=== PATIENT | male | born 1960 | race Caucasian/White ===

== ENCOUNTER 2018-02-13 07:38 | Day surgery (SDC) | payer BC, OTHER ==
[~2018-02-13 07:38] MED LIST: Bupivacaine 0.5% 30 ML SDV ONE; Lactated Ringers 1,000 ML IV SCH; Lidocaine 1% 20 ML MDV ONE; Sodium Chloride 0.9% 10 ML Syringe FLUSH PRN; Sodium Chloride 0.9% 2.5 ML Syringe FLUSH PRN; ceFAZolin 2 GM in Premix Bag 1 BAG IV ONE
[2018-02-13] MEDS ORDERED: Propofol 200 MG/20 ML SDV ONE (08:14)
[2018-02-13] MEDS ORDERED: Ketorolac 30 MG/ML SDV ONE (08:17)
[2018-02-13] MEDS ORDERED: Glycopyrrolate 0.2 MG/ML SDV ONE (08:17)
[2018-02-13] MEDS ORDERED: Ondansetron 4 MG/2 ML SDV ONE (08:17)
[2018-02-13] MEDS ORDERED: Lidocaine 2% 5 ML SDV ONE (08:17)
[2018-02-13] MEDS ORDERED: fentaNYL 100 MCG/2 ML SDV ONE (08:19)
[2018-02-13] MEDS ORDERED: Midazolam 1 MG/ML 2 ML SDV ONE (08:19)
--- NOTE | 2018-02-13 08:27 | PCM.PREANE ---
Preanesthetic Assessment - Anesthesia/Transfusion/Family Hx Anesthesia History: Prior Anesthesia Without Reaction Family History of Anesthesia Reaction: No Transfusion History: No Prior Transfusion(s) Intubation History: Unknown - Review of Systems General: No Symptoms Pulmonary: No Symptoms Cardiovascular: No Symptoms Gastrointestinal: No Symptoms Neurological: No Symptoms Other: Reports: None - Physical Assessment Height: 1.83 m Weight: 83.461 kg ASA Class: 2 Mental Status: Alert & Oriented x3 Airway Class: Mallampati = 2 Dentition: Reports: Normal Dentition Thyro-Mental Finger Breadths: 3 Mouth Opening Finger Breadths: 2 ROM/Head Extension: Full Lungs: Clear to Auscultation, Normal Respiratory Effort Cardiovascular: Regular Rate, Regular Rhythm - Allergies Allergies/Adverse Reactions: Allergies Allergy/AdvReac Type Severity Reaction Status Date / Time No Known Allergies Allergy Verified 02/10/18 12:32 - Blood Blood Available: No - Anesthesia Plan Pre-Op Medication Ordered: None - Acknowledgements Anesthesia Type Planned: General Anesthesia Pt an Appropriate Candidate for the Planned Anesthesia: Yes Pt/Guardian Understands and Agrees with Anesthesia Plan: Yes PreAnesthesia Questionnaire HEENT History: Reports: Allergic Rhinitis, Other (See Below) Other HEENT History: glasses for driving Cardiovascular History: Reports: None Respiratory History: Reports: None Gastrointestinal History: Reports: Colon Polyp, GERD Genitourinary History: Reports: None Musculoskeletal History: Reports: Fracture, Other (See Below) (chronic fatigue) Other Musculoskeletal History: hx fx arm and finger Neurological History: Reports: Concussion Psychiatric History: Reports: None Endocrine/Metabolic History: Reports: None Hematologic History: Reports: None Immunologic History: Reports: None Oncologic (Cancer) History: Reports: None Dermatologic History: Reports: Psoriasis - Past Surgical History Head Surgeries/Procedures: Reports: None HEENT Surgical History: Reports: Tonsillectomy GI Surgical History: Reports: Colonoscopy Musculoskeletal Surgical History: Reports: ORIF Other Musculoskeletal Surgeries/Procedures:: ORIF fx finger - SUBSTANCE USE Smoking Status *Q: Former Smoker (quit 21 years ago) Tobacco Use Within Last Twelve Months: No Recreational Drug Use History: No - HOME MEDS Home Medications: Home Meds Aspirin [Adult Low Dose Aspirin EC] 81 mg PO DAILY 02/04/18 [History] Omeprazole Magnesium [Prilosec Otc] 20 mg PO DAILY PRN 02/04/18 [History] - CURRENT (IN HOUSE) MEDS Current Meds: Current Medications Lactated Ringer's (Ringers, Lactated) 1,000 mls @ 125 mls/hr IV ASDIRECTED MORELIA Sodium Chloride (Saline Flush) 10 ml FLUSH ASDIRECTED PRN PRN Reason: Keep Vein Open Sodium Chloride (Saline Flush) 2.5 ml FLUSH ASDIRECTED PRN PRN Reason: Keep Vein Open Discontinued Medications Bupivacaine HCl (Marcaine 0.5%) Confirm Administered Dose 30 ml .ROUTE .STK-MED ONE Stop: 02/13/18 07:38 Fentanyl (Sublimaze) Confirm Administered Dose 100 mcg .ROUTE .STK-MED ONE Stop: 02/13/18 08:20 Glycopyrrolate (Robinul) Confirm Administered Dose 0.2 mg .ROUTE .STK-MED ONE Stop: 02/13/18 08:18 Cefazolin Sodium/Dextrose 2 gm (/ Premix) 50 mls @ 100 mls/hr IV ONETIME ONE Stop: 02/12/18 11:18 Ketorolac Tromethamine (Toradol) Confirm Administered Dose 30 mg .ROUTE .STK- MED ONE Stop: 02/13/18 08:18 Lidocaine (Xylocaine-Mpf 2%) Confirm Administered Dose 5 ml .ROUTE .STK-MED ONE Stop: 02/13/18 08:18 Lidocaine HCl (Xylocaine 1%) Confirm Administered Dose 20 ml .ROUTE .STK-MED ONE Stop: 02/13/18 07:38 Midazolam HCl (Versed 1 Mg/Ml) Confirm Administered Dose 2 mg .ROUTE .STK-MED ONE Stop: 02/13/18 08:20 Ondansetron HCl (Zofran) Confirm Administered Dose 4 mg .ROUTE .STK-MED ONE Stop: 02/13/18 08:18 Propofol (Diprivan 20 Ml) Confirm Administered Dose 200 mg .ROUTE .STK-MED ONE Stop: 02/13/18 08:15
[2018-02-13] MEDS ORDERED: Sodium Chloride 0.9% 20 ML ONE (08:49)
[2018-02-13] MEDS ORDERED: ceFAZolin 1 GM Vial ONE (08:49)
[2018-02-13] MEDS ORDERED: Octyl 2-Cyanoacrylate 1 Tube ONE (09:31)
[2018-02-13] MEDS ORDERED: Phenylephrine/Normal Saline 100 MCG/ML 10 ML Syringe ONE (09:38)
--- NOTE | 2018-02-13 10:36 | PCM.OPNOTE ---
- General Post-Op/Procedure Note Date of Surgery/Procedure: 02/13/18 Operative Procedure(s): Excision left neck skin lesion, left upper abdominal mass x 2, and right upper thigh mass Findings: Changing neck lesion, lipomas in LUQ x 2 and right upper thigh. Pre Op Diagnosis: Changing skin lesion, lipomas Post-Op Diagnosis: same Anesthesia Technique: MAC Primary Surgeon: Khushboo Walton Condition: Good
--- NOTE | 2018-02-13 10:42 | PCM.POSTAN ---
POST ANESTHESIA ASSESSMENT - MENTAL STATUS Mental Status: Alert, Oriented - RESPIRATORY Respiratory Status: Respiratory Rate WNL, Airway Patent, O2 Saturation Stable - CARDIOVASCULAR CV Status: Pulse Rate WNL, Blood Pressure Stable - GASTROINTESTINAL GI Status: No Symptoms - PAIN Pain Score: 0 - POST OP HYDRATION Hydration Status: Adequate & Stable
--- NOTE | 2018-02-13 11:18 | PCM48HPAN ---
Post Anesthesia Note - EVALUATION WITHIN 48HRS OF ANESTHETIC Vital Signs in Normal Range: Yes Patient Participated in Evaluation: Yes Respiratory Function Stable: Yes Airway Patent: Yes Cardiovascular Function Stable: Yes Hydration Status Stable: Yes Pain Control Satisfactory: Yes Nausea and Vomiting Control Satisfactory: Yes Mental Status Recovered: Yes Resp Rate: 15 - COMMENTS/OBSERVATIONS Free Text/Narrative:: no anesthesia problems
--- NOTE | 2018-02-14 12:56 | OR ---
SURGEON: MITCH TSAI MD DATE OF PROCEDURE: 02/13/2018 PREOPERATIVE DIAGNOSES: 1. Left neck skin lesion. 2. Left upper quadrant mass x2. 3. Right upper thigh mass. POSTOPERATIVE DIAGNOSES: 1. Left neck skin lesion. 2. Left upper quadrant mass x2. 3. Right upper thigh mass. PROCEDURE PERFORMED: Excision of left neck skin lesion, excision of left upper quadrant mass x2, excision of right upper thigh mass. ANESTHESIA: General LMA. FLUIDS: See anesthesia record. ESTIMATED BLOOD LOSS: 5 mL. FINDINGS: 1. Left neck skin lesion, measuring 2 cm x 1 cm x 2 mm. 2. Left upper quadrant mass #1, measuring 4 cm x 3 cm x 1.5 cm. 3. Left upper quadrant mass #2, measuring 2.5 cm x 2 cm x 1 cm. 4. Right upper thigh mass, measuring 3 cm x 2 cm x 1 cm. Left upper quadrant masses and right upper thigh mass appeared to be lipomas. COMPLICATIONS: None. INDICATIONS: The patient is a 58-year-old male, who presented with complaints of a nonhealing lesion on the left side of his neck. He also has three masses that have been present for sometime and have been causing some discomfort. The decision was made to excise the left neck skin lesion and three masses at the same time in the operating room. I explained the procedure, expected perioperative course, and risks including bleeding, infection, or damage to surrounding structures. The patient verbalized understanding and wishes to proceed. PROCEDURE IN DETAIL: The patient was brought into the OR and placed on the OR table in supine position. A time-out was completed verifying the patient's name, age, date of , allergies, and procedure to be performed. General LMA anesthesia was induced. The patient was then placed into a beach chair position and the left neck was prepped and draped in usual standard fashion. I had preoperatively marked the skin lesion on the patient's left neck. I anesthetized the area with 1% lidocaine plain. I then made an elliptical incision using a 15 blade around the skin lesion following the skin lines. Cautery was then used to dissect down to the level of the subcutaneous fat. I then undermined the skin lesion and removed it. The skin lesion was measured. It measured 2 cm x 1 cm x 2 mm in size. I then passed this off the field, labeled as left neck skin lesion and it was sent to pathology. Hemostasis was achieved using cautery. I then closed the incision site with an interrupted 3-0 Vicryl in the subcutaneous fat layer and the skin was closed with a running 4-0 Monocryl stitch. Dermabond was applied and once the site dried, I placed a sterile dressing over the neck. All the drapes were taken down and the patient was then placed into supine position. We then prepped and draped the abdomen as well as the right upper thigh. I first turned my attention to the left upper quadrant mass that was closer to the epigastric region. I anesthetized the area with 0.5% Marcaine plain. A 3.5 cm incision was made over the top of this mass using a 15 blade. Cautery was used to dissect down to the subcutaneous fat. I immediately encountered a globular mass that appeared to be a lipoma. This was grasped with an Allis and using cautery and blunt dissection, I was able to dissect around the mass. It was then completely excised from the surrounding tissues and placed on the back table. It measured 4 cm x 3 cm x 1/2 cm in size. It was labeled as left upper quadrant mass #1 and sent to pathology. I achieved hemostasis with cautery, then closed the wound with interrupted 3-0 Vicryl in the subcutaneous fat layer and closed the skin with a running 4-0 Monocryl stitch. I then turned my attention to the next left upper quadrant mass, which was more lateral. I anesthetized this area with 0.5% Marcaine plain. A 15 blade was used to make a 3 cm incision over the top of this mass. Cautery was used to dissect down to the level of subcutaneous fat. I immediately encountered a globular fatty appearing mass, which appeared to be a lipoma. This was grasped with an Allis and using cautery and blunt dissection, I was able to dissect it free of the surrounding tissues. This was placed on the back table and measured, it measured 2.5 cm x 2 cm x 1 cm in size. It was sent to pathology and labeled as left upper quadrant mass #2. Electrocautery was used to achieve hemostasis. The wound was then closed with interrupted 3-0 Vicryl in the subcutaneous fat layer and the skin was closed with a running 4-0 Monocryl stitch. I then turned my attention to the right upper side. I anesthetized the area over the mass with 0.5% Marcaine plain. I then made a 3 cm incision over the top of the mass using a 15 blade. Cautery was used to dissect down the level of subcutaneous fat. I immediately encountered a fatty globular mass consistent with a lipoma. This was grasped with an Allis. Using cautery and blunt dissection, I was able to free this from the surrounding tissues. The mass was placed in the back table and measured, it measured 3 cm x 2 cm x 1 cm in size. It was sent to pathology and labeled as right upper thigh mass. Hemostasis was achieved using cautery and I closed the incision with interrupted 3-0 Vicryl in the subcutaneous fat layer and the skin was closed with a running 4-0 Monocryl stitch. I then placed Steri-Strips and sterile dressings over the three incision sites. The patient tolerated the procedure well and was taken to PACU in stable condition. SHARAN YADAV /[id number]
== END 2018-02-13 11:10 | disposition home or self-care (01) ==
LOC: MW.SDS 07:38
PROVIDERS: ATTEND Surgery
DX: D17.1 Benign lipomatous neoplasm of skin and subcutaneous tissue of trunk (principal); D17.23 Benign lipomatous neoplasm of skin and subcutaneous tissue of right leg; C44.41 Basal cell carcinoma of skin of scalp and neck; K21.9 Gastro-esophageal reflux disease without esophagitis; Z87.891 Personal history of nicotine dependence; Z79.899 Other long term (current) drug therapy
CPT/HCPCS: 11623; 12041; 22903; 27337; 88304; 88305; A9270; J0690; J1885; J2250; J2370; J2405; J2704; J3010; J3490; J7120